=== PATIENT | female | born 1930 | race Caucasian/White ===

== ENCOUNTER 2016-11-17 23:03 | Inpatient (IN) | payer MEDICARE, BC ==
[~2016-11-17] VITALS: Ht 162.6 cm; Wt 42.0 kg
[~2016-11-17 23:03] MED LIST: ANTIVERT 25MG25 MG PO; LEVAQUIN 5500 MG/TAB PO; LEVOTHYROXINE PO; TARKA; VICODIN 5/5001 UDTAB PO
[2016-11-18] VITALS (8 sets, daily range): BP systolic 117–150; BP diastolic 65–87; PULSE 56–70; TEMP 97.6–98.3
[2016-11-18 01:20] LABS: BASO % 0.4 % (0.0-2.0); EOS % 0.2 % (0-4.0); GRAN % 77.3 % (42.2-75.2); HEMOGLOBIN 12.3 g/dl (12.5-16.0); LYMPH # 1.2 (1.2-3.4); LYMPH % 13.3 % (20.0-51.0); MEAN CELL VOLUME 95 fl (80.0-100.0); MEAN CORPUSCULAR HEMOGLOBIN 32 pg (27.0-31.0); MEAN CORPUSCULAR HGB CONC 33 g/dl (33.0-37.0); MEAN PLATELET VOLUME 9.7 fl (7.4-10.4); MONO # 0.8 (0.1-0.6); MONO % 8.5 % (1.7-9.3); PLATELET COUNT 210 K/mm3 (130-400); RED BLOOD COUNT 3.89 M/mm3 (4.10-5.30); REDCELL DISTRIBUTION WIDTH-CV 13.2 % (11.5-14.5); WHITE BLOOD COUNT 9.1 K/mm3 (4.8-10.8)
[2016-11-18 01:40] LABS: HEMATOCRIT 36.9 % (37.0-47.0)
[2016-11-18 01:41] LABS: ADJUSTED CALCIUM 9.9 mg/dL (8.4-10.2); ALANINE AMINOTRANSFERASE 28 U/L (9-52); ALBUMIN 4.2 gm/dL (3.5-5.0); ALKALINE PHOSPHATASE 58 U/L (50-136); ANION GAP 12 mmol/L (7-16); BILIRUBIN,TOTAL 0.7 mg/dL (0.0-1.0); BLOOD UREA NITROGEN 32 mg/dL (7-17); CALCIUM 10.1 mg/dL (8.4-10.2); CARBON DIOXIDE 24 mmol/L (22-30); CHLORIDE 98 mmol/L (98-107); CREATININE, serum 0.82 mg/dL (0.52-1.25); GLUCOSE 104 mg/dL (74-106); LIPASE 78 U/L (23-300); POTASSIUM 4.5 mmol/L (3.4-5.0); SODIUM 134 mmol/L (137-145); TOTAL PROTEIN 7.2 gm/dL (6.4-8.2)
[2016-11-18 01:42] LABS: C-REACTIVE PROTEIN < 0.5 mg/dL (0.0-0.9)
[2016-11-18] MEDS ORDERED: PRINIVIL20 MG PO (02:35)
[2016-11-18] MEDS ORDERED: ISOPTIN SR240 MG PO (02:44)
[2016-11-18] MEDS ORDERED: SYNTHROID0.112 MG/T PO (02:51)
[2016-11-18 07:53] LABS: HEMATOCRIT 32.8 % (37.0-47.0)
[2016-11-18 14:07] LABS: HEMOGLOBIN 12.2 g/dl (12.5-16.0)
[2016-11-18 14:08] LABS: HEMATOCRIT 36.9 % (37.0-47.0)
[2016-11-18] MEDS ORDERED: OSCAL 500 TAB500 MG PO (14:11)
[2016-11-18] MEDS ORDERED: OMEGA-3 1000 MG1 CAP PO (14:11)
[2016-11-18] MEDS ORDERED: MULTI VITAMINS1 TAB PO (14:11)
[2016-11-18 20:29] LABS: HEMATOCRIT 31.8 % (37.0-47.0); HEMOGLOBIN 10.7 g/dl (12.5-16.0)
[2016-11-19 00:51] VITALS: BP 126/71; PULSE 63; TEMP 98.3
[2016-11-19 02:00] LABS: HEMATOCRIT 30.7 % (37.0-47.0); HEMOGLOBIN 10.3 g/dl (12.5-16.0)
[2016-11-19 04:29] VITALS: BP 141/69; PULSE 105; TEMP 97.9
[2016-11-19 07:49] VITALS: BP 144/72; PULSE 64; TEMP 97.3
[2016-11-19 08:48] LABS: BASO % 0.5 % (0.0-2.0); EOS # 0.1 (0.0-0.7); EOS % 1.1 % (0-4.0); GRAN # 6.6 (1.4-6.5); GRAN % 81.5 % (42.2-75.2); LYMPH # 0.9 (1.2-3.4); LYMPH % 10.7 % (20.0-51.0); MEAN CELL VOLUME 95 fl (80.0-100.0); MEAN CORPUSCULAR HGB CONC 33 g/dl (33.0-37.0); MEAN PLATELET VOLUME 9.5 fl (7.4-10.4); MONO # 0.5 (0.1-0.6); MONO % 5.8 % (1.7-9.3); PLATELET COUNT 184 K/mm3 (130-400); RED BLOOD COUNT 3.54 M/mm3 (4.10-5.30); REDCELL DISTRIBUTION WIDTH-CV 13.1 % (11.5-14.5); WHITE BLOOD COUNT 8.1 K/mm3 (4.8-10.8)
[2016-11-19 09:04] LABS: HEMATOCRIT 33.5 % (37.0-47.0); MEAN CORPUSCULAR HEMOGLOBIN 31 pg (27.0-31.0)
[2016-11-19 09:06] LABS: CALCIUM 7.3 mg/dL (8.4-10.2); CREATININE, serum 0.67 mg/dL (0.52-1.25); POTASSIUM 3.4 mmol/L (3.4-5.0)
[2016-11-19 11:57] VITALS: BP 125/73; PULSE 74; TEMP 98.1
[2016-11-19 12:53] LABS: HEMATOCRIT 33.3 % (37.0-47.0); HEMOGLOBIN 10.9 g/dl (12.5-16.0)
[2016-11-19 16:43] VITALS: BP 154/71; PULSE 65; TEMP 97.4
[2016-11-19 18:21] LABS: HEMATOCRIT 37.8 % (37.0-47.0); HEMOGLOBIN 12.6 g/dl (12.5-16.0)
[2016-11-19 21:18] VITALS: BP 110/68; PULSE 68; TEMP 98.1
[2016-11-20 00:34] VITALS: BP 126/98; PULSE 75; TEMP 97.7
[2016-11-20 01:25] LABS: PH 7 (5-8); SQUAMOUS EPITHELIAL 0-2 /hpf; URINE APPEARANCE Clear; URINE BACTERIA None Seen /hpf; URINE BILIRUBIN Negative (NEGATIVE); URINE BLOOD Negative (NEGATIVE); URINE COLOR Straw; URINE GLUCOSE Negative (NEGATIVE); URINE KETONE Negative (NEGATIVE); URINE RBC None Seen /hpf; URINE UROBILINOGEN Negative (NEGATIVE); URINE WBC 0-2 /hpf
[2016-11-20 04:41] VITALS: BP 153/88; PULSE 67; TEMP 97.4
[2016-11-20 07:04] VITALS: BP 159/83; PULSE 64; TEMP 97.5
[2016-11-20 07:30] LABS: BASO % 0.5 % (0.0-2.0); EOS # 0.3 (0.0-0.7); EOS % 3.9 % (0-4.0); GRAN # 4.7 (1.4-6.5); GRAN % 72.6 % (42.2-75.2); LYMPH # 1.1 (1.2-3.4); LYMPH % 16.4 % (20.0-51.0); MEAN CELL VOLUME 95 fl (80.0-100.0); MEAN CORPUSCULAR HGB CONC 33 g/dl (33.0-37.0); MEAN PLATELET VOLUME 9.7 fl (7.4-10.4); MONO # 0.4 (0.1-0.6); MONO % 6.3 % (1.7-9.3); PLATELET COUNT 191 K/mm3 (130-400); RED BLOOD COUNT 3.65 M/mm3 (4.10-5.30); REDCELL DISTRIBUTION WIDTH-CV 13.1 % (11.5-14.5); WHITE BLOOD COUNT 6.5 K/mm3 (4.8-10.8)
[2016-11-20 07:37] LABS: HEMATOCRIT 34.5 % (37.0-47.0); HEMOGLOBIN 11.5 g/dl (12.5-16.0); MEAN CORPUSCULAR HEMOGLOBIN 32 pg (27.0-31.0)
[2016-11-20] MEDS ORDERED: BENTYL 10MG10 MG/CAP PO (11:21)
[2016-11-20 11:44] VITALS: BP 124/75; PULSE 67; TEMP 98.1
[2016-11-26] MEDS ORDERED: FLOMAX 0.40.4 MG/CAP PO (09:54)
== END 2016-11-20 13:19 | disposition home or self-care (01) | DRG 393 ==
LOC: COL.ER 23:03 → MEDICAL 11-18 03:22
PROVIDERS: Emergency Medicine; Internal Medicine Gastroenterology; Nurse Practitioner; Physician Assistant
PROC: 0DJD8ZZ Inspection of Lower Intestinal Tract, Via Natural or Artificial Opening Endoscopic (ICD-10-PCS; principal; 2016-11-18 15:00)
DX: K55.9 Vascular disorder of intestine, unspecified (principal); E43 Unspecified severe protein-calorie malnutrition; D62 Acute posthemorrhagic anemia; Z68.1 Body mass index [BMI] 19.9 or less, adult; I10 Essential (primary) hypertension; E03.9 Hypothyroidism, unspecified; Z66 Do not resuscitate
CPT/HCPCS: 99223-AI; 99232-AI; 99239; C9113; J0744; J2250; J2405; J3010; J7030; Q9967

== ENCOUNTER 2016-12-06 06:12 | Day surgery (SDC) | payer MEDICARE, BC ==
[~2016-12-06] VITALS: Ht 162.6 cm; Wt 44.9 kg
[~2016-12-06 06:12] MED LIST changes: +BENTYL 10MG10 MG/CAP PO; +FLOMAX 0.40.4 MG/CAP PO; +ISOPTIN SR240 MG PO; +MULTI VITAMINS1 TAB PO; +OMEGA-3 1000 MG1 CAP PO; +OSCAL 500 TAB500 MG PO; +PRINIVIL20 MG PO; +SYNTHROID0.112 MG/T PO
[2016-12-06] MEDS ORDERED: FLOMAX 0.40.4 MG/CAP PO (06:41)
[2016-12-06 06:48] VITALS: BP 145/92; PULSE 65; TEMP 98
[2016-12-06 07:55] VITALS: BP 157/96; PULSE 59; TEMP 97.2
[2016-12-06 08:10] VITALS: BP 141/89; PULSE 61
[2016-12-06 08:25] VITALS: BP 147/90; PULSE 56
[2016-12-06 12:59] VITALS: BP 151/94; PULSE 64
== END 2016-12-06 08:40 | disposition home or self-care (01) ==
LOC: SDCO 06:12
DX: K92.1 Melena (principal); K62.3 Rectal prolapse; K62.89 Other specified diseases of anus and rectum; K57.30 Diverticulosis of large intestine without perforation or abscess without bleeding; K59.00 Constipation, unspecified; K55.9 Vascular disorder of intestine, unspecified
CPT/HCPCS: J2250; J3010; J7030

== ENCOUNTER 2017-01-31 07:35 | Outpatient (CLI) | payer MEDICARE, BC ==
[~2017-01-31] VITALS: Ht 160 cm; Wt 42.0 kg
[~2017-01-31 07:35] MED LIST changes: +THERMOTABS 2871 TA1 PO; +XARELTO15 MG PO; +ZOFRAN 4MG T4 MG/TAB PO
[2017-01-31 08:13] LABS: HEMOGLOBIN 12.1 g/dl (12.5-16.0); MEAN CELL VOLUME 96 fl (80.0-100.0); MEAN CORPUSCULAR HEMOGLOBIN 32 pg (27.0-31.0); MEAN CORPUSCULAR HGB CONC 33 g/dl (33.0-37.0); MEAN PLATELET VOLUME 9.2 fl (7.4-10.4); PLATELET COUNT 263 K/mm3 (130-400); RED BLOOD COUNT 3.78 M/mm3 (4.10-5.30); WHITE BLOOD COUNT 4.3 K/mm3 (4.8-10.8)
[2017-01-31 08:14] LABS: HEMATOCRIT 36.4 % (37.0-47.0)
[2017-01-31 08:20] LABS: CALCIUM 9.5 mg/dL (8.4-10.2); CREATININE, serum 0.74 mg/dL (0.52-1.25)
[2017-01-31 08:21] LABS: INR 1.1 (0.8-3.0); PROTHROMBIN TIME 12.9 SECONDS (9.7-12.8)
[2017-01-31 08:32] VITALS: BP 152/83; PULSE 71
[2017-01-31] MEDS ORDERED: PRINIVIL20 MG PO (09:10)
[2017-01-31] MEDS ORDERED: SYNTHROID0.112 MG/T PO (09:11)
[2017-01-31] MEDS ORDERED: XARELTO15 MG PO (09:12)
[2017-01-31] MEDS ORDERED: THERMOTABS 2871 TA1 PO (09:13)
[2017-01-31 10:00] VITALS: BP 136/88; PULSE 75
[2017-01-31 10:15] VITALS: BP 144/91; PULSE 63
[2017-01-31 10:30] VITALS: BP 148/98; PULSE 65
== END 2017-01-31 10:30 | disposition home or self-care (01) ==
LOC: COL.RAD 07:35
PROVIDERS: Internal Medicine Cardiovascular Disease
DX: I48.91 Unspecified atrial fibrillation (principal); I10 Essential (primary) hypertension; E87.1 Hypo-osmolality and hyponatremia; E03.9 Hypothyroidism, unspecified
CPT/HCPCS: J2704

== ENCOUNTER 2017-12-10 15:16 | Emergency (ER) | payer MEDICARE, BC ==
[~2017-12-10] VITALS: Ht 160 cm; Wt 45.5 kg
[2017-12-10 15:24] VITALS: TEMP 97.3
[2017-12-10] MEDS ORDERED: BACTRIM DS 8001 TAB PO (17:58)
[2017-12-10 19:19] VITALS: BP 139/67; PULSE 67
== END 2017-12-10 19:15 | disposition home or self-care (01) ==
LOC: COL.ER 15:16
DX: S41.111A Laceration without foreign body of right upper arm, initial encounter (principal); S01.81XA Laceration without foreign body of other part of head, initial encounter; S81.012A Laceration without foreign body, left knee, initial encounter; S80.01XA Contusion of right knee, initial encounter; S40.022A Contusion of left upper arm, initial encounter; E03.9 Hypothyroidism, unspecified; I10 Essential (primary) hypertension; W18.39XA Other fall on same level, initial encounter; Y92.009 Unspecified place in unspecified non-institutional (private) residence as the place of occurrence of the external cause

== ENCOUNTER 2017-12-15 09:35 | Emergency (ER) | payer MEDICARE, BC ==
[~2017-12-15 09:35] MED LIST changes: +BACTRIM DS 8001 TAB PO
[2017-12-15 09:50] VITALS: BP 124/65; PULSE 64; TEMP 97.6
== END 2017-12-15 10:10 | disposition home or self-care (01) ==
LOC: COL.ER 09:35
DX: S01.111D Laceration without foreign body of right eyelid and periocular area, subsequent encounter (principal); X58.XXXD Exposure to other specified factors, subsequent encounter

== ENCOUNTER 2017-12-17 09:30 | Emergency (ER) | payer MEDICARE, BC ==
[2017-12-17 09:33] VITALS: BP 124/65; PULSE 64; TEMP 97.4
== END 2017-12-17 09:40 | disposition home or self-care (01) ==
LOC: COL.ER 09:30
DX: S61.511D Laceration without foreign body of right wrist, subsequent encounter (principal); X58.XXXD Exposure to other specified factors, subsequent encounter